=== PATIENT | female | born 1970 | race Caucasian/White ===

== ENCOUNTER → 2019-04-06 | Outpatient (CLI) | payer OTHER ==
[~2019-04-06] MED LIST: ACET500ER PO; ADIPEX; ALBU90I INH; ALBUIS INH; ASCO500 PO; ASPI81EC PO; Bactrim Ds Tab1 EACH PO; CARB200ER PO; CEPH500 PO; CODBUTACEC PO; CODGUAEL PO; Cipro250 MG PO; FOLGARD TABLET1 EACH PO; FOLI1 PO; HYDMOR2 PO; IBUP800 PO; LEVE500 PO; METO10 PO; MULVITMIND PO; OLME20 PO; OMEG1CAP30 PO; OXYACE5T PO; PRED20 PO; PROM25 PO; Pyridium200 MG PO; TIROSINT25 MCG PO; TOPI50 PO; VENL150ER PO
== END | disposition home or self-care (01) ==
LOC: LAB SHORT 19:18 → LAB EV 19:18
DX: N39.0 Urinary tract infection, site not specified (principal)
CPT/HCPCS: 87077; 87086; 87186

== ENCOUNTER → 2019-08-24 | Outpatient (CLI) | payer OTHER | END | disposition home or self-care (01) | LOC: LAB SHORT 12:57 → LAB EV 12:57 | DX: N39.0 Urinary tract infection, site not specified (principal) | CPT/HCPCS: 87077; 87086; 87186 ==

== ENCOUNTER → 2019-09-21 | Outpatient (CLI) | payer OTHER | END | disposition home or self-care (01) | LOC: LAB SHORT 15:47 → LAB EV 15:47 | DX: N39.0 Urinary tract infection, site not specified (principal) | CPT/HCPCS: 87077; 87086; 87186 ==

== ENCOUNTER → 2019-10-30 | Outpatient (CLI) | payer OTHER | END | disposition home or self-care (01) | LOC: LAB EV 12:53 → LAB SHORT 12:53 | DX: N39.0 Urinary tract infection, site not specified (principal) | CPT/HCPCS: 87086 ==

== ENCOUNTER → 2019-12-04 | Outpatient (CLI) | payer OTHER | LOC: LAB SHORT 10:46 → LAB EV 10:46 | DX: N39.0 Urinary tract infection, site not specified (principal) | CPT/HCPCS: 87077; 87086; 87186 ==

== ENCOUNTER → 2020-07-31 | Outpatient (CLI) | payer OTHER | END | disposition home or self-care (01) | LOC: LAB SHORT 09:45 → LAB EV 09:45 | DX: N39.0 Urinary tract infection, site not specified (principal) | CPT/HCPCS: 87077; 87086; 87186 ==

== ENCOUNTER → 2020-10-30 | Outpatient (CLI) | payer OTHER | END | disposition home or self-care (01) | LOC: LAB SHORT 10:34 → LAB EV 10:34 | DX: N39.0 Urinary tract infection, site not specified (principal) | CPT/HCPCS: 87077; 87086; 87186 ==

== ENCOUNTER → 2021-07-13 | Outpatient (CLI) | payer OTHER | END | disposition home or self-care (01) | LOC: LAB SHORT 16:19 → LAB 16:19 | DX: N39.0 Urinary tract infection, site not specified (principal) | CPT/HCPCS: 87077; 87086; 87186 ==

== ENCOUNTER → 2021-10-24 | Outpatient (CLI) | payer OTHER | END | disposition home or self-care (01) | LOC: LAB SHORT 14:43 | DX: N39.0 Urinary tract infection, site not specified (principal) | CPT/HCPCS: 87077; 87086; 87186 ==

== ENCOUNTER → 2022-03-12 | Outpatient (CLI) | payer OTHER | END | disposition home or self-care (01) | LOC: LAB SHORT 09:41 | DX: N39.0 Urinary tract infection, site not specified (principal) | CPT/HCPCS: 87086 ==

== ENCOUNTER → 2022-04-19 | Outpatient (CLI) | payer OTHER | END | disposition home or self-care (01) | LOC: LAB 10:53 → LAB SHORT 10:53 | DX: N39.0 Urinary tract infection, site not specified (principal) | CPT/HCPCS: 87077; 87086; 87186 ==

== ENCOUNTER → 2022-09-06 | Outpatient (CLI) | payer OTHER | END | disposition home or self-care (01) | LOC: LAB 09:43 → LAB SHORT 09:43 | DX: N39.0 Urinary tract infection, site not specified (principal) | CPT/HCPCS: 87086 ==

== ENCOUNTER → 2022-09-20 | Outpatient (CLI) | payer OTHER | END | disposition home or self-care (01) | LOC: LAB SHORT 10:42 → LAB 10:42 | DX: N39.0 Urinary tract infection, site not specified (principal) | CPT/HCPCS: 87086 ==

== ENCOUNTER → 2023-08-05 | Outpatient (CLI) | payer OTHER | END | disposition home or self-care (01) | LOC: LAB SHORT 11:47 → LAB 11:47 | DX: N39.0 Urinary tract infection, site not specified (principal) | CPT/HCPCS: 87077; 87086; 87186 ==

== ENCOUNTER → 2023-08-26 | Outpatient (CLI) | payer OTHER | LOC: LAB SHORT 11:00 → LAB 11:00 | DX: N39.0 Urinary tract infection, site not specified (principal) | CPT/HCPCS: 87077; 87086; 87186 ==

== ENCOUNTER 2024-07-15 16:44 | Inpatient (IN) | payer OTHER ==
[~2024-07-15] VITALS: Ht 175.3 cm; Wt 95.4 kg
[~2024-07-15 16:44] MED LIST changes: -LEVE500 PO; +ROWEEPRA XR500 MG PO; +TOPI100 PO; -TOPI50 PO
[2024-07-15] MEDS ORDERED: LORazepam 2 MG/ML 1ML Injection IV ONE (16:55)
[2024-07-15] MEDS ORDERED: Albuterol 2.5 MG/3 ML VIAL INH SCH (16:55)
[2024-07-15] MEDS ORDERED: Magnesium Sulf 2 GM/Water 50ML 50 ML IV ONE (16:55)
[2024-07-15 16:59] LABS: BASOPHILS ABSOLUTE AUTO 0.07 K/mm3 (0.00-0.23); BASOPHILS PERCENT AUTO 1 % (0-2); EOSINOPHILS ABSOLUTE AUTO 0.48 K/mm3 (0.00-0.68); EOSINOPHILS PERCENT AUTO 5 % (0-6); Hematocrit 45.1 % (33.0-51.0); Hemoglobin 16.3 g/dL (11.5-16.0); IMMATURE GRAN ABSOLUTE AUTO 0.02 K/mm3 (0.00-0.10); IMMATURE GRAN PERCENT AUTO 0 % (0-1); LYMPHOCYTES ABSOLUTE AUTO 2.57 K/mm3 (0.84-5.20); LYMPHOCYTES PERCENT AUTO 25 % (21-46); MONOCYTES ABSOLUTE AUTO 0.62 K/mm3 (0.16-1.47); MONOCYTES PERCENT AUTO 6 % (4-13); Mean Corpuscular HGB 32.5 pg (26.0-34.0); Mean Corpuscular HGB Conc 36.1 g/dL (31.5-36.5); Mean Corpuscular Volume 90 fL (80-100); Mean Platelet Volume 8.7 fL (9.1-12.4); NEUTROPHILS ABSOLUTE AUTO 6.43 K/mm3 (1.96-9.15); NEUTROPHILS PERCENT AUTO 63 % (41-73); Platelet Count 271 K/mm3 (150-400); RDW Standard Deviation 39.3 fL (35.1-46.3); Red Blood Cell Count 5.02 M/mm3 (3.80-5.20); White Blood Cell Count 10.19 K/mm3 (4.00-11.30)
[2024-07-15 17:01] LABS: Base Excess Venous -9.5 mmol/L; Bicarbonate Venous 18.6 mmol/L (24.0-30.0); pH Blood Venous 7.43 (7.34-7.37)
[2024-07-15] MEDS ORDERED: Amitriptyline H10 MG PO (17:01)
[2024-07-15] MEDS ORDERED: ALBU90OI INH (17:02)
[2024-07-15 17:19] LABS: Albumin, Blood 3.9 g/dL (3.4-5.0); Albumin/Globulin Ratio 1.1 (0.8-1.8); Bilirubin, Total 0.6 mg/dL (0.1-1.0); Calcium, Blood 9.1 mg/dL (8.5-10.1); Creatinine, Blood 0.78 mg/dL (0.40-1.00); Globulin, Blood 3.6 g/dL (2.2-4.0); Potassium, Blood 4.3 mmol/L (3.5-5.5); Total Protein, Blood 7.5 g/dL (6.4-8.2)
[2024-07-15 18:33] LABS: Influenza A, PCR NEGATIVE (NEGATIVE); Influenza B, PCR NEGATIVE (NEGATIVE); Resp Syncytial Virus, PCR NEGATIVE (NEGATIVE); SARS-Cov-2 (COVID-19) PCR, MMC NEGATIVE (NEGATIVE)
[2024-07-15] MEDS ORDERED: Ipratropium/Albuterol SulF 2.5-0.5MG/3 ML Amp INH SCH (18:55)
[2024-07-15] MEDS ORDERED: Acetaminophen 325 MG TABLET PO PRN (19:00)
[2024-07-15] MEDS ORDERED: Magnesium Hydroxide Conc 10 ML UDC PO PRN (19:00)
[2024-07-15] MEDS ORDERED: FLU VACC TS2024-25(6MOS UP)/PF 45 MCG/0.5 ML SYRINGE IM ONE (19:00)
[2024-07-15] MEDS ORDERED: MethylPREDNISolone Sod Succ 125 MG Vial IV SCH (19:10)
[2024-07-15] MEDS ORDERED: Benzonatate 100 MG Cap PO PRN (20:15)
[2024-07-15] MEDS ORDERED: LevETIRAcetam 500 MG Tab PO SCH (21:00)
[2024-07-15] MEDS ORDERED: Topiramate 100 MG Tab PO SCH (21:00)
[2024-07-15] MEDS ORDERED: Amitriptyline HCl 10 MG Tab PO SCH (21:00)
[2024-07-15] MEDS ORDERED: Albuterol 2.5 MG/3 ML VIAL INH PRN (21:20)
[2024-07-15 21:25] VITALS: BP 116/70
[2024-07-15] MEDS ORDERED: Ibuprofen 400 MG Tab PO PRN (21:40)
[2024-07-15] MEDS ORDERED: Misc. Tablet PO SCH (22:37)
[2024-07-15] MEDS ORDERED: Vancomycin HCL 1,500 MG in NS 250 ML IV SCH (23:00)
[2024-07-16] VITALS (7 sets, daily range): BP systolic 16–131; BP diastolic 65–88
[2024-07-16 00:13] LABS: Adenovirus Not Detected (NOT DETECT); Bordetella pertussis Not Detected (NOT DETECT); Chlamydophila pneumoniae Not Detected (NOT DETECT); Coronavirus 229E Not Detected (NOT DETECT); Coronavirus HKU1 Not Detected (NOT DETECT); Coronavirus NL63 Not Detected (NOT DETECT); Coronavirus OC43 Not Detected (NOT DETECT); Human Metapneumovirus Not Detected (NOT DETECT); Human Rhinovirus/Enterovirus Detected (NOT DETECT); Influenza A/2009-H1 Not Detected (NOT DETECT); Influenza A/H1 Not Detected (NOT DETECT); Influenza A/H3 Not Detected (NOT DETECT); Influenza B Not Detected (NOT DETECT); Mycoplasma pneumoniae Not Detected (NOT DETECT); Parainfluenza Virus 1 Not Detected (NOT DETECT); Parainfluenza Virus 2 Not Detected (NOT DETECT); Parainfluenza Virus 3 Not Detected (NOT DETECT); Parainfluenza Virus 4 Not Detected (NOT DETECT); Respiratory Syncytial Virus Not Detected (NOT DETECT); SARS-Cov-2 (COVID-19), BioFire Not Detected (NOT DETECT)
[2024-07-16 05:39] LABS: Albumin, Blood 3.5 g/dL (3.4-5.0); Bilirubin, Total 0.5 mg/dL (0.1-1.0); Bun/Creatinine Ratio 12.9 (12.0-20.0); Calcium, Blood 9.2 mg/dL (8.5-10.1); Creatinine, Blood 0.78 mg/dL (0.40-1.00); Globulin, Blood 3.4 g/dL (2.2-4.0); Potassium, Blood 3.9 mmol/L (3.5-5.5); Total Protein, Blood 6.9 g/dL (6.4-8.2)
--- NOTE | 2024-07-16 06:43 | NUR ---
SHIFT SUMMARY PT ARRIVED TO ROOM PCU 15 FROM THE ER AROUND 2104 VIA GURNEY. PT TRANSFERED HERSELF TO THE HOSPITAL BED. PT ORIENTED TO ROOM AND CALL LIGHT. PT IS A&OX4. VSS ON RA. PT HAS A HORRIBLE BARKY, DRY NONPRODUCTIVE COUGH. THIS IS VERY PAINFUL TO HER RIBS R/T COUGHING SO FREQUENTLY. MEDICATED PER EMAR FOR RIB PAIN 04/11 WITH 800MG IBUPROFEN, AND 10ML GUAIFENESIN/CODEINE SYRUP FOR HER COUGH. PT USING A PILLOW TO APPLY PRESSURE TO RIGHT SIDE OF RIBS WHEN COUGHING TO HELP WITH PAIN. PT IS ADAMANT ABOUT GOING HOME TODAY. TOLERATING A REGULAR DIET, DECREASED PO INTAKE R/T NOT FEELING WELL AND INCREASE SOB. SBA/INDEP. TO BR. VOIDING LARGE AMOUNTS OF CLEAR, BRIGHT YELLOW URINE. NO BM THIS SHIFT. DROPLET PRECAUTIONS INITIATED FOR ENTERO/RHINO VIRUS. BED IN LOWEST POSITION, CALL LIGHT WITHIN REACH.
[2024-07-16] MEDS ORDERED: Enoxaparin 40 MG/0.4 ML SYR SC SCH (09:00)
[2024-07-16] MEDS ORDERED: ALPRAZolam 0.5 MG Tab PO PRN (09:15)
[2024-07-16] MEDS ORDERED: Budesonide 0.5 MG/2 ML RESP INH SCH (14:30)
--- NOTE | 2024-07-16 18:26 | NUR ---
SHIFT SUMMARY ASSUMED CARE AT 0700 AND RECEIVED REPORT FROM PEST CONTROL SPECIALIST NURSE. PT REMAINED ALERT AND ORIENTED THROUGHOUT SHIFT AND MADE NEEDS KNOWN. VITALS STABLE. LUNG SOUNDS WHEEZY AND COARSE IN ALL [place]. PRODUCTIVE AND PERSISTENT COUGHT NOTED THROUGHOUT SHIFT. NO ACUTE EVENTS THIS SHIFT.
[2024-07-16] MEDS ORDERED: Ipratropium/Albuterol SulF 2.5-0.5MG/3 ML Amp INH SCH (18:55)
[2024-07-16] MEDS ORDERED: Montelukast Sodium 10 MG Tab PO SCH (21:00)
[2024-07-16] MEDS ORDERED: Ketorolac Tromethamine 15mg Vial IV ONE (22:40)
--- NOTE | 2024-07-16 22:40 | NUR ---
PHYSICIAN COMMUNICATION CONTACTED TERRITORY REPRESENTATIVE RESIDENT TO INFORM HER THAT THE PATIENT IS EXPERIENCING 8/10 RIB PAIN WHILE COUGHING AND PATIENT HAS RECEIVED IBUPROPHEN AND TYLENOL WITHOUT RELIEF AND WAS REQUESTING SOMETHING ELSE. THE RESIDENT ORDERED A ONE TIME DOSE OF 15 MG IV TORADOL.
[2024-07-17] MEDS ORDERED: FentaNYL Citrate 50 MCG/ML 2 ML Injection IV PRN (04:30)
[2024-07-17 04:32] LABS: BASOPHILS ABSOLUTE AUTO 0.02 K/mm3 (0.00-0.23); BASOPHILS PERCENT AUTO 0 % (0-2); EOSINOPHILS PERCENT AUTO 0 % (0-6); Hematocrit 42.3 % (33.0-51.0); Hemoglobin 14.5 g/dL (11.5-16.0); IMMATURE GRAN ABSOLUTE AUTO 0.13 K/mm3 (0.00-0.10); IMMATURE GRAN PERCENT AUTO 1 % (0-1); LYMPHOCYTES ABSOLUTE AUTO 1.44 K/mm3 (0.84-5.20); LYMPHOCYTES PERCENT AUTO 7 % (21-46); MONOCYTES PERCENT AUTO 3 % (4-13); Mean Corpuscular HGB 32.5 pg (26.0-34.0); Mean Corpuscular HGB Conc 34.3 g/dL (31.5-36.5); NEUTROPHILS PERCENT AUTO 89 % (41-73); Platelet Count 238 K/mm3 (150-400); RDW Coefficient Variation 12.2 % (11.7-14.2); RDW Standard Deviation 42.5 fL (35.1-46.3); Red Blood Cell Count 4.46 M/mm3 (3.80-5.20); White Blood Cell Count 20.99 K/mm3 (4.00-11.30)
[2024-07-17 04:34] LABS: Mean Corpuscular Volume 95 fL (80-100)
[2024-07-17 04:50] VITALS: BP 116/70
[2024-07-17 04:52] LABS: Bun/Creatinine Ratio 22.9 (12.0-20.0); Calcium, Blood 9.1 mg/dL (8.5-10.1); Creatinine, Blood 0.83 mg/dL (0.40-1.00)
--- NOTE | 2024-07-17 06:42 | NUR ---
SHIFT SUMMARY PATIETN ALERT AND ORIENTED X4. MEDICATED PER EMAR FOR PAIN WITH NO EFFECT UNTIL FENTANYL WAS ADMINISTERED, PATIENT REPORTED IT "TOOK THE EDGE OFF" HER RIB PAIN MAKING IT SO SHE COULD COUGH MORE COMFORTABLY. PATIENT ON ROOM AIR WITH SPO2 >90%. VITAL SIGNS STABLE, SINUS RYTHM ON TELE. WILL CONTINUE TO MONITOR. CALL LIGHT WITHIN REACH.
[2024-07-17 08:43] VITALS: BP 120/64
[2024-07-17 11:43] VITALS: BP 121/74
[2024-07-17 17:09] VITALS: BP 128/79
--- NOTE | 2024-07-17 18:51 | NUR ---
PT HAS BEEN BREATHING WELL TODAY WITH USE OF COUGH SUPPRESSANTS, BREATHING TREATMENTS, PAIN MEDS. SHE REPORTS THE SHE IS FEELING LESS ANXIOUS TODAY. SHE IS ABLE TO TALK IN FULL SENTENCES. REPORTS INTERMITTENT PLEURITIC CHEST PAIN PAIN. VSS. LOAIZA. SHE HAS BEEN UP TO SHOWER.
[2024-07-17 21:07] VITALS: BP 127/76
[2024-07-18 03:59] VITALS: BP 119/71
--- NOTE | 2024-07-18 06:38 | NUR ---
SHIFT SUMMARY PATIENT ALERT AND ORIENTED X4. INDEPENDENT WITH AMBULATING IN HER ROOM. SHE WAS MEDICATED PER EMAR FOR PAIN, COUGH, AND ANXIETY. SHE REPORTS HAVING ANXIETY ON HER SLOW PROGRESSION TOWARDS GETTING BETTER. SHE REMAINS ON ROOM AIR WITH SPO2 >90%. VITAL SIGNS STABLE. NO ACUTE ISSUES NOTED OVERNIGHT. WILL CONTINUE TO MONITOR. CALL LIGHT WITHIN REACH.
[2024-07-18 08:24] VITALS: BP 154/92
[2024-07-18] MEDS ORDERED: Ketorolac Tromethamine 15mg Vial IV ONE (10:20)
[2024-07-18] MEDS ORDERED: Chlorphiramine/Hydrod Polistir 5 ML UDC PO SCH (10:20)
[2024-07-18] MEDS ORDERED: Sennosides 8.6 MG Tab PO SCH (10:20)
[2024-07-18] MEDS ORDERED: HYDROmorphone HCl/Pf 1MG SYR IV PRN (14:05)
[2024-07-18 15:27] VITALS: BP 125/87
--- NOTE | 2024-07-18 17:32 | NUR ---
END OF SHIFT NOTE: PT A/OX4, ABLE TO CALL APPROPRIATELY & COMMUNICATE NEEDS W/ STAFF. ANXIOUS AT TIMES, PARTICULARLY DURING EPISODES OF COUGHING. SPO2 >90% ON ROOM AIR, COUGH REMAINS HARSH/BARKING. HR 80-90'S, NO TELE PER ORDERS. SBP 120-150'S, DENIES CHEST PAIN. C/O SEVERE PAIN & SPASMING TO RIGHT SIDE/RIBS; IMPROVEMENT W/ PAIN MEDICATION & COUGH SUPPRESSANT PER EMAR. XANAX PER EMAR FOR ANXIETY NEEDED. UP TO BATHROOM TO VOID INDEPENDENTLY, ABLE TO REPOSITION SELF IN BED. TOLERATING PO INTAKE WELL. NO OTHER NEEDS AT THIS TIME. PT IS RESTING IN BED W/ AT BEDSIDE. CALL LIGHT IN REACH.
[2024-07-18 20:08] VITALS: BP 134/87
[2024-07-18] MEDS ORDERED: BusPIRone HCl 5 MG Tab PO SCH (21:00)
[2024-07-19 04:18] LABS: pH Blood Venous 7.34 (7.34-7.37)
[2024-07-19 04:19] LABS: Base Excess Venous -5.5 mmol/L; Bicarbonate Venous 20.2 mmol/L (24.0-30.0); PCO2 Venous 37.8 mmHg (38-42)
[2024-07-19 04:21] LABS: BASOPHILS ABSOLUTE AUTO 0.04 K/mm3 (0.00-0.23); BASOPHILS PERCENT AUTO 0 % (0-2); EOSINOPHILS PERCENT AUTO 0 % (0-6); Hematocrit 41.7 % (33.0-51.0); Hemoglobin 14.4 g/dL (11.5-16.0); IMMATURE GRAN ABSOLUTE AUTO 0.27 K/mm3 (0.00-0.10); IMMATURE GRAN PERCENT AUTO 2 % (0-1); LYMPHOCYTES PERCENT AUTO 11 % (21-46); MONOCYTES ABSOLUTE AUTO 0.63 K/mm3 (0.16-1.47); MONOCYTES PERCENT AUTO 4 % (4-13); Mean Corpuscular HGB 32.7 pg (26.0-34.0); Mean Corpuscular HGB Conc 34.5 g/dL (31.5-36.5); Mean Corpuscular Volume 95 fL (80-100); Mean Platelet Volume 8.9 fL (9.1-12.4); NEUTROPHILS ABSOLUTE AUTO 12.56 K/mm3 (1.96-9.15); NEUTROPHILS PERCENT AUTO 83 % (41-73); Platelet Count 212 K/mm3 (150-400); RDW Coefficient Variation 11.9 % (11.7-14.2); RDW Standard Deviation 41.1 fL (35.1-46.3); Red Blood Cell Count 4.41 M/mm3 (3.80-5.20)
[2024-07-19 04:25] VITALS: BP 141/75
[2024-07-19 04:49] LABS: Bun/Creatinine Ratio 25.7 (12.0-20.0); Calcium, Blood 8.6 mg/dL (8.5-10.1); Creatinine, Blood 0.74 mg/dL (0.40-1.00); Potassium, Blood 3.8 mmol/L (3.5-5.5)
--- NOTE | 2024-07-19 06:35 | NUR ---
SHIFT SUMMARY PATIENT ALERT AND ORIENTED X4, IS INDEPENDENT IN HER ROOM. PATIENT CONTINUES TO HAVE RIGHT SIDED PAIN WHEN COUGHING, MEDICATED PER EMAR. COUGH SOUNDS CONGESTED WITH COARSE LUNG SOUNDS. PATIENT CONTINUES ON ROOM AIR WITH SPO2 >90%. VITAL SIGNS STABLE. WILL CONTINUE TO MONITOR. CALL LIGHT WITHIN REACH.
[2024-07-19 07:31] VITALS: BP 135/74
[2024-07-19] MEDS ORDERED: Acetylcysteine 200 MG/ML 4ML Vial INH SCH (12:05)
[2024-07-19 15:17] VITALS: BP 144/98
[2024-07-19] MEDS ORDERED: HYDROmorphone HCl/Pf 1MG SYR IV PRN (16:15)
--- NOTE | 2024-07-19 17:56 | NUR ---
END OF SHIFT NOTE: NO ACUTE EVENTS THIS SHIFT. PT A/OX4, ANXIOUS AT TIMES. ABLE TO CALL APPROPRIATELY & COMMUNICATE NEEDS W/ STAFF. HR 70-80'S, NO TELE PER ORDERS. SBP 130-140'S, MAP >65. SPO2 >90% ON RA. PT CONTINUES TO ENDORSE RIGHT "RIB PAIN" AND "SPASMS", MEDICATED PER EMAR W/ RELIEF. BREATHING TX PER RT. PT TOLERATING PO INTAKE WELL. ABLE TO AMBULATE INDEPENDENTLY TO RESTROOM & REPOSITION INDEPENDENTLY. NO OTHER NEEDS AT THIS TIME. PT SITTING UP IN BED W/ DAUGHTER AT BEDSIDE. CALL LIGHT IN REACH.
[2024-07-19 19:55] VITALS: BP 143/69
[2024-07-19] MEDS ORDERED: PredniSONE 20 MG Tab PO SCH (21:00)
[2024-07-19] MEDS ORDERED: BusPIRone HCl 5 MG Tab PO SCH (21:00)
[2024-07-20 04:39] VITALS: BP 116/94
[2024-07-20 04:48] LABS: BASOPHILS ABSOLUTE AUTO 0.07 K/mm3 (0.00-0.23); BASOPHILS PERCENT AUTO 1 % (0-2); EOSINOPHILS PERCENT AUTO 0 % (0-6); Hematocrit 40.5 % (33.0-51.0); Hemoglobin 13.8 g/dL (11.5-16.0); IMMATURE GRAN PERCENT AUTO 4 % (0-1); LYMPHOCYTES ABSOLUTE AUTO 1.74 K/mm3 (0.84-5.20); LYMPHOCYTES PERCENT AUTO 15 % (21-46); MONOCYTES ABSOLUTE AUTO 0.62 K/mm3 (0.16-1.47); MONOCYTES PERCENT AUTO 5 % (4-13); Mean Corpuscular HGB 32.5 pg (26.0-34.0); Mean Corpuscular HGB Conc 34.1 g/dL (31.5-36.5); Mean Corpuscular Volume 95 fL (80-100); Mean Platelet Volume 8.9 fL (9.1-12.4); NEUTROPHILS ABSOLUTE AUTO 8.83 K/mm3 (1.96-9.15); NEUTROPHILS PERCENT AUTO 75 % (41-73); Platelet Count 215 K/mm3 (150-400); RDW Coefficient Variation 12.1 % (11.7-14.2); RDW Standard Deviation 41.9 fL (35.1-46.3); Red Blood Cell Count 4.25 M/mm3 (3.80-5.20); White Blood Cell Count 11.76 K/mm3 (4.00-11.30)
--- NOTE | 2024-07-20 05:02 | NUR ---
SHIFT SUMMARY. SHIFT HAS BEEN UNREMARKABLE. PT AOX4, PLEASANT, COOPERATIVE WITH CARE, CALLS APPROPRIATELY, ABLE TO MAKE NEEDS KNOWN. PAIN HAS BEEN MOSTLY ADEQUATELY MANAGED VIA EMAR THROUGHOUT SHIFT. PT REPORTS AT REST PAIN IS VERY TOLERABLE, SPIKES WITH COUGHING. PT REPORTS THAT MEDICATION DOES HELP TO ALLEVIATE THE PAIN ASSOCIATED WITH COUGHING BUT EVEN WITH PRN PAIN MEDICATIONS GIVEN ON CYCLE PAIN PERSISTS. LUNG SOUNDS REMAIN VERY COARSE AND WHEEZY. DESPITE THIS, ABLE TO MAINTAIN ADEQUATE SATURATION ON ROOM AIR. INDEPENDENT IN ROOM. REPORTS HAS BEEN ABLE TO VOID WITHOUT DIFFICULTY BUT HAS NOT HAD BM SINCE ADMITTANCE. PT MED STATUS NO TELE, VITALS HAVE REMAINED STABLE. SHIFT HAS OTHERWISE BEEN UNREMARKABLE. BED LOCKED IN LOWEST POSITION. CALL LIGHT LEFT WITHIN REACH. CONTINUING TO MONITOR.
[2024-07-20 05:20] LABS: Bun/Creatinine Ratio 22.9 (12.0-20.0); Calcium, Blood 8.9 mg/dL (8.5-10.1); Creatinine, Blood 0.79 mg/dL (0.40-1.00); Potassium, Blood 3.9 mmol/L (3.5-5.5)
[2024-07-20] MEDS ORDERED: HYDROmorphone HCl 2 MG Tab PO PRN (09:05)
[2024-07-20 09:13] VITALS: BP 141/76
--- NOTE | 2024-07-20 15:16 | NUR ---
TRANSFER UPDATE REPORT GIVEN TO [facility] FLOOR RN AT 1456. PT TRNAFERED TO [facility] AT 1517 VIA WHEELCHAIR AND ON RA. PT ABLE TO TRANSFER TO AND FROM WHEELCHAIR ON HER OWN, TOLRETED WELL. PT PERSONAL BELONGINGS WITH PT AND PT'S FAMILY MAMEBER DURING TRANSFER. CHART WITH STAFF MEMBER ALONG WITH MEDICATIONS IN GREEN MED TRANFER BAG.
--- NOTE | 2024-07-20 17:08 | NUR ---
SHIFT SUMMARY PT TRANSFERED FROM PCU 15 TO ROOM 326 THIS SHIFT. PT IS A&O X4 AND INDEPENDENT IN ROOM. PT NOTED TO HAVE PAIN TO CHEST AND RIBS STATED IT WAS FROM COUGHING ALL THE TIME, MEDICATED PER EMAR. PT DAUGHTER IS AT BEDSIDE. PT IS ORINTATED TO ROOM WITH NO CONCERNS AT THIS TIME. PT IS IN ISOLATION D/T TESTING POSITIVE FOR THE RINOVIRUS.
[2024-07-20 20:28] VITALS: BP 119/73
[2024-07-20] MEDS ORDERED: BusPIRone HCl 10 MG Tab PO SCH (21:00)
[2024-07-20] MEDS ORDERED: GuaiFENesin 600 MG TabCR PO SCH (21:00)
--- NOTE | 2024-07-21 03:05 | NUR ---
SHIFT SUMMARY: PT ALERT ORIENTED X 4. GETS UP IN HER ROOM AD RACIEL. AMBULATES AD RACIEL. REMAINS WITH A HACKING NONPRODUCTIVE COUGH. C/O RIB PAIN FROM COUGHING MEDICATED WITH DILAUDID WITH GOOD PAIN RELIEF. VSS ON RA SATTING AT 99%. C/O SOB ON EXERTION. REMAINS WITH HHN TXS. REMAINS WITH ANXIETY BUT STATED SHE DIDNT NEED ANY XANAX. REMAINS ON DROPLET PRECAUTIONS R/T RHINOVIRUS. CONTINUES ON CONTINUOUS PULSE OX. RESTING IN BED AT THIS TIME.
[2024-07-21 04:44] VITALS: BP 141/86
[2024-07-21 06:13] LABS: Free Thyroxine 0.62 ng/dL (0.70-1.60); Thyroid Stimulating Hormone 0.237 uIU/mL (0.360-4.800)
[2024-07-21 08:18] VITALS: BP 124/91
[2024-07-21] MEDS ORDERED: BUSP10 PO (13:15)
[2024-07-21] MEDS ORDERED: GUAI600T33 PO (13:16)
[2024-07-21] MEDS ORDERED: [UNRECOGNIZED DRUG - OTHER] PO (13:17)
[2024-07-21] MEDS ORDERED: HYDMOR2 PO (13:18)
[2024-07-21] MEDS ORDERED: IPRAT-ALBUT 0.5-3 ML INH (13:18)
[2024-07-21] MEDS ORDERED: MONT10T PO (13:20)
[2024-07-21] MEDS ORDERED: EUTHYROX125 MCG PO (13:20)
[2024-07-21] MEDS ORDERED: SENN187 PO (13:21)
[2024-07-21] MEDS ORDERED: PRED20 PO (13:21)
--- NOTE | 2024-07-21 13:42 | NUR ---
DISCHARGE SUMMARY PT DC THIS SHIFT. DC INSTRUCTION GONE OVER WITH PT WHOM STATED UNDERSTANDING. PT WAS GIVEN 3 HARD COPIES OF SCRIPTS WHICH WAS PLACED IN YELLOW FOLDER. HOME MEDICATION WAS ALSO GIVEN BACK TO PT. PT WAS ESCORTED TO PRIVATE VEHICLE VIA WHEELCHAIR ACCOMPANIED BY [employer]S MATE AND FAMILY.
== END 2024-07-21 14:09 | disposition home or self-care (01) | DRG 189 ==
LOC: ER 16:44 → PCU 18:57 → MEDS 07-20 15:20
PROVIDERS: Emergency Medicine; Internal Medicine; ADMIT Internal Medicine
DX: J96.01 Acute respiratory failure with hypoxia (principal); J45.41 Moderate persistent asthma with (acute) exacerbation; J20.5 Acute bronchitis due to respiratory syncytial virus; G43.909 Migraine, unspecified, not intractable, without status migrainosus; G40.909 Epilepsy, unspecified, not intractable, without status epilepticus; F41.9 Anxiety disorder, unspecified; F32.A Depression, unspecified; Z28.21 Immunization not carried out because of patient refusal; Z88.2 Allergy status to sulfonamides; Z79.899 Other long term (current) drug therapy; Z85.43 Personal history of malignant neoplasm of ovary; Z90.710 Acquired absence of both cervix and uterus; Z87.891 Personal history of nicotine dependence
CPT/HCPCS: 0202U; 0241U; 36415; 71045; 71046; 80048; 80053; 82803; 83036; 84145; 84439; 84443; 85025; 93005; 93010; 94640; 94644; 94645; 94664; 94762; 96365; 96375; 99285-25; A9270; J1170; J1650; J1885; J2060; J2919; J3010; J3475; J7512

== ENCOUNTER 2024-09-30 13:55 | Inpatient (IN) | payer OTHER ==
[~2024-09-30] VITALS: Ht 172.7 cm; Wt 93.9 kg
[~2024-09-30 13:55] MED LIST changes: +ALBU90OI INH; +Amitriptyline H10 MG PO; +BUSP10 PO; +GUAI600T33 PO; +IPRAT-ALBUT 0.5-3 ML INH; +LEVSOD75 PO; +MONT10T PO; +SENN187 PO; +[UNRECOGNIZED DRUG - OTHER] PO
[2024-09-30 14:43] LABS: BASOPHILS ABSOLUTE AUTO 0.04 K/mm3 (0.00-0.23); BASOPHILS PERCENT AUTO 0 % (0-2); EOSINOPHILS PERCENT AUTO 0 % (0-6); Hematocrit 42.5 % (33.0-51.0); Hemoglobin 14.9 g/dL (11.5-16.0); IMMATURE GRAN PERCENT AUTO 1 % (0-1); LYMPHOCYTES ABSOLUTE AUTO 1.53 K/mm3 (0.84-5.20); LYMPHOCYTES PERCENT AUTO 12 % (21-46); MONOCYTES ABSOLUTE AUTO 0.25 K/mm3 (0.16-1.47); MONOCYTES PERCENT AUTO 2 % (4-13); Mean Corpuscular HGB 32.2 pg (26.0-34.0); Mean Corpuscular HGB Conc 35.1 g/dL (31.5-36.5); Mean Corpuscular Volume 92 fL (80-100); Mean Platelet Volume 8.2 fL (9.1-12.4); NEUTROPHILS ABSOLUTE AUTO 10.66 K/mm3 (1.96-9.15); NEUTROPHILS PERCENT AUTO 85 % (41-73); Platelet Count 284 K/mm3 (150-400); RDW Coefficient Variation 12.4 % (11.7-14.2); RDW Standard Deviation 41.2 fL (35.1-46.3); Red Blood Cell Count 4.63 M/mm3 (3.80-5.20); White Blood Cell Count 12.58 K/mm3 (4.00-11.30)
[2024-09-30] MEDS ORDERED: Magnesium Sulf 2 GM/Water 50ML 50 ML IV ONE (14:55)
[2024-09-30] MEDS ORDERED: MethylPREDNISolone Sod Succ 125 MG Vial IV ONE (14:55)
[2024-09-30] MEDS ORDERED: Albuterol 2.5 MG/3 ML VIAL INH SCH ×2 (14:55→18:10)
[2024-09-30] MEDS ORDERED: Ipratropium Bromide INH 0.02% 0.5 mg/2.5ML Vial INH SCH (14:55)
[2024-09-30] MEDS ORDERED: Ketamine HCl 100 MG / ML 5ML Vial IV ONE (15:00)
[2024-09-30 15:05] LABS: Albumin, Blood 3.7 g/dL (3.4-5.0); Bilirubin, Total 0.4 mg/dL (0.1-1.0); Bun/Creatinine Ratio 19.4 (12.0-20.0); Calcium, Blood 9.4 mg/dL (8.5-10.1); Creatinine, Blood 0.67 mg/dL (0.40-1.00); Globulin, Blood 3.7 g/dL (2.2-4.0); Potassium, Blood 3.8 mmol/L (3.5-5.5); Total Protein, Blood 7.4 g/dL (6.4-8.2)
[2024-09-30] MEDS ORDERED: NS 1,000 ML IV SCH ×2 (16:20→18:10)
[2024-09-30] MEDS ORDERED: Guaifenesin/Dextromethorphan Syrup 5 ML UDC PO PRN (18:05)
[2024-09-30] MEDS ORDERED: Albuterol 2.5 MG/3 ML VIAL INH PRN (18:05)
[2024-09-30] MEDS ORDERED: Acetaminophen 500 MG Tab PO PRN (18:05)
[2024-09-30] MEDS ORDERED: LORazepam 1 MG Tab PO PRN (18:10)
[2024-09-30] MEDS ORDERED: Ondansetron HCl 2 MG / ML 2ML Vial IV PRN (18:10)
[2024-09-30 19:11] LABS: Bicarbonate Venous 19.8 mmol/L (24.0-30.0); PCO2 Venous 31.5 mmHg (38-42); pH Blood Venous 7.37 (7.34-7.37)
[2024-09-30] MEDS ORDERED: FLU VACC TS2024-25(6MOS UP)/PF 45 MCG/0.5 ML SYRINGE IM ONE (20:00)
[2024-09-30 20:29] LABS: Adenovirus Not Detected (NOT DETECT); Bordetella pertussis Not Detected (NOT DETECT); Chlamydophila pneumoniae Not Detected (NOT DETECT); Coronavirus 229E Not Detected (NOT DETECT); Coronavirus HKU1 Not Detected (NOT DETECT); Coronavirus NL63 Not Detected (NOT DETECT); Coronavirus OC43 Not Detected (NOT DETECT); Human Metapneumovirus Not Detected (NOT DETECT); Human Rhinovirus/Enterovirus Not Detected (NOT DETECT); Influenza A/2009-H1 Not Detected (NOT DETECT); Influenza A/H1 Not Detected (NOT DETECT); Influenza A/H3 Not Detected (NOT DETECT); Influenza B Not Detected (NOT DETECT); Mycoplasma pneumoniae Not Detected (NOT DETECT); Parainfluenza Virus 1 Not Detected (NOT DETECT); Parainfluenza Virus 2 Not Detected (NOT DETECT); Parainfluenza Virus 3 Detected (NOT DETECT); Parainfluenza Virus 4 Not Detected (NOT DETECT); Respiratory Syncytial Virus Not Detected (NOT DETECT); SARS-Cov-2 (COVID-19), BioFire Not Detected (NOT DETECT)
[2024-09-30] MEDS ORDERED: Topiramate 100 MG Tab PO SCH (21:00)
[2024-09-30] MEDS ORDERED: Amitriptyline HCl 10 MG Tab PO SCH (21:00)
[2024-09-30] MEDS ORDERED: BusPIRone HCl 10 MG Tab PO SCH (21:00)
[2024-09-30] MEDS ORDERED: GuaiFENesin 600 MG TabCR PO SCH (21:00)
[2024-09-30] MEDS ORDERED: LEVETIRACETAM 500 MG PO SCH (21:00)
[2024-09-30] MEDS ORDERED: Ventolin5 MG/1 ML INH (23:00)
[2024-09-30] MEDS ORDERED: IBU800 M1 PO (23:01)
[2024-09-30] MEDS ORDERED: ACETAMINOPHEN500 M2 PO (23:02)
--- NOTE | 2024-09-30 23:12 | NUR ---
ADMIT NOTE 54 YR OLD FEMALE ADMITED TO FLOOR FROM THE ED WITH DX OF ASTHMA EXACERBATION. LUNG SONDS COARSE IN ALL LOBES PER AUSCULTATION. ALERT AND ORIENTED. UP AD RACIEL. VSS. COOPERATIVE AND PLEASANT AFFECT. ORIENTED TO USE OF CALL LIGHT AND BED CONTROL. RECEIVED RT TREATMENT, TOLERATED MEDS WELL WITH WATER. HOB ELEVATED FOR REP COMFORT. CALL LIGHT IN REACH. WILL CONT TO MONITOR
[2024-10-01] MEDS ORDERED: MethylPREDNISolone Sod Succ 125 MG Vial IV SCH
--- NOTE | 2024-10-01 03:04 | NUR ---
ELECTION WATCHER SUMMARY VSS. ADMITTED TO FLOOR EARLIER WITH DX OF ASTHMA EXACERBATION. ALERT AND ORIENTED. UP AD RACIEL. LUNG SOUNDS CONGESTED. RECEIVED RESP TREATMENT PER RT AND HAS BEEN RESTING WITH FEW INTERRUTIONS SINCE. ABLE TO REPOSITION SELF IN BED WITHOUT ASSISANCE. CALL LIGHT IN REACH, RAILS UP X 2 AND BED IN LOW POSITION FOR SAFETY. WILL CONT TO MONITOR
[2024-10-01 03:33] VITALS: BP 120/84
--- NOTE | 2024-10-01 05:17 | NUR ---
HAS BEEN RESTING QUIETL WITH FEW INTERRUPTIONS. RECEIVING RESPIRATORY MEDS AND TREATMENTS. LUNG SOUNDS MORE CLEAR TO AUSCULATION. DRY COUGH NOTED. CALL LIGHT IN REACH
[2024-10-01 05:35] LABS: Hematocrit 41.4 % (33.0-51.0); Hemoglobin 14.2 g/dL (11.5-16.0); Mean Corpuscular HGB 32.5 pg (26.0-34.0); Mean Corpuscular HGB Conc 34.3 g/dL (31.5-36.5); Mean Corpuscular Volume 95 fL (80-100); Mean Platelet Volume 8.6 fL (9.1-12.4); Platelet Count 281 K/mm3 (150-400); RDW Coefficient Variation 12.3 % (11.7-14.2); RDW Standard Deviation 42.9 fL (35.1-46.3); Red Blood Cell Count 4.37 M/mm3 (3.80-5.20); White Blood Cell Count 12.77 K/mm3 (4.00-11.30)
[2024-10-01 06:12] LABS: Bun/Creatinine Ratio 19.4 (12.0-20.0); Creatinine, Blood 0.67 mg/dL (0.40-1.00); Potassium, Blood 3.6 mmol/L (3.5-5.5)
[2024-10-01 07:34] VITALS: BP 118/79
[2024-10-01] MEDS ORDERED: Enoxaparin 40 MG/0.4 ML SYR SC SCH (09:00)
[2024-10-01] MEDS ORDERED: Ketorolac Tromethamine 30mg Vial IV PRN (14:45)
--- NOTE | 2024-10-01 16:26 | NUR ---
SHIFT SUMMARY PT AWAKE AT START OF SHIFT, AT BS. PT ADMITTED FOR ASTHMA EXAC; LUNG'S ARE COARSE WITH INSP/EXP WHEEZES THRU OUT. PT REQUESTED PAIN AND COUGH MED THUR OUT SHIFT. PT REPORTED SEVERE RIB PAIN FROM COUGHING. DR RICHTER IN TO SEE PT AND DISCUSS PLAN OF CARE. PT TO STAY ONE MORE NIGHT TO IMPROVE COUGH AND BREATHING. PT IS UP INDEPENDENTLY IN RM TO BTHRM. EATING AND DRINKING WELL. DENIES FURTHER NEEDS AT THIS TIME.
[2024-10-01 17:01] VITALS: BP 123/75
[2024-10-01 19:22] VITALS: BP 117/81
[2024-10-02 03:07] VITALS: BP 109/57
--- NOTE | 2024-10-02 03:33 | NUR ---
BASKET BOTTOM MACHINE OPERATOR SUMMARY VSS. LUNG SOUNDS WERE CONGESTED WITH INSPIRATORY WHEEZES WELL WITH AUSCULTATION ATT HS. IV MEDS AND RESP TREATMENTS GIVEN, COUGHING DECREASED AND LESS CONGESTION NOTED. ALERT AND ORIENTED.UP AD RACIEL. ABLE TO REPOSITION SELF IN BED WITHOUT ASSIST. HAS BEEN RESTING QUIETLY WITH FEW INTERRUPTIOMS. CALL LIGHT IN REACH, RAILS UP X 2 AND BED IN LOW POSITION FOR SAFETY. WILL CONT TO [facility]
[2024-10-02 05:41] LABS: BASOPHILS ABSOLUTE AUTO 0.03 K/mm3 (0.00-0.23); BASOPHILS PERCENT AUTO 0 % (0-2); EOSINOPHILS ABSOLUTE AUTO 0.01 K/mm3 (0.00-0.68); EOSINOPHILS PERCENT AUTO 0 % (0-6); Hematocrit 41.9 % (33.0-51.0); Hemoglobin 14.3 g/dL (11.5-16.0); IMMATURE GRAN PERCENT AUTO 1 % (0-1); LYMPHOCYTES ABSOLUTE AUTO 2.17 K/mm3 (0.84-5.20); LYMPHOCYTES PERCENT AUTO 12 % (21-46); MONOCYTES ABSOLUTE AUTO 0.55 K/mm3 (0.16-1.47); MONOCYTES PERCENT AUTO 3 % (4-13); Mean Corpuscular HGB 31.9 pg (26.0-34.0); Mean Corpuscular HGB Conc 34.1 g/dL (31.5-36.5); Mean Corpuscular Volume 94 fL (80-100); Mean Platelet Volume 8.7 fL (9.1-12.4); NEUTROPHILS ABSOLUTE AUTO 15.33 K/mm3 (1.96-9.15); NEUTROPHILS PERCENT AUTO 84 % (41-73); Platelet Count 261 K/mm3 (150-400); RDW Coefficient Variation 12.3 % (11.7-14.2); RDW Standard Deviation 42.3 fL (35.1-46.3); Red Blood Cell Count 4.48 M/mm3 (3.80-5.20); White Blood Cell Count 18.29 K/mm3 (4.00-11.30)
[2024-10-02 06:24] LABS: Albumin, Blood 3.4 g/dL (3.4-5.0); Bilirubin, Total 0.3 mg/dL (0.1-1.0); Bun/Creatinine Ratio 24.5 (12.0-20.0); Calcium, Blood 9.1 mg/dL (8.5-10.1); Creatinine, Blood 0.7 mg/dL (0.40-1.00); Globulin, Blood 3.3 g/dL (2.2-4.0); Thyroid Stimulating Hormone 0.228 uIU/mL (0.360-4.800); Total Protein, Blood 6.7 g/dL (6.4-8.2)
[2024-10-02 07:14] VITALS: BP 130/86
[2024-10-02] MEDS ORDERED: ROBITUSSIN DM PO (14:15)
[2024-10-02] MEDS ORDERED: GUAI600T33 PO (14:16)
--- NOTE | 2024-10-02 16:03 | NUR ---
PT AWAKE DURING SHIFT REPORT. PT FEELING A LITTLE BETTER. BREATHING IMPROVED AND COUGH DECREASED, THOUGH LUNGS STILL COARSE AND WHEEZY. PT WANTING TO GO HOME TODAY. DR RICHTER LATER IN TO SEE PT AND DISCUSS PLAN OF CARE. D/C ORDERS PLACED. MEDS FAXED TO [facility], PER PT REQUEST. D/C INSTRUCTIONS REVIEWED WITH PT AND ; VERBALIZED UNDERSTANDING. PT ASSISTED OUT VIA W/C WITH ALL BELONGINGS TO HUSBANDS CAR.
== END 2024-10-02 14:55 | disposition home or self-care (01) | DRG 189 ==
LOC: ER 13:55 → MEDS 17:30 → ERHOLD 17:30 → MEDS 21:31
PROVIDERS: Internal Medicine; Nurse Practitioner Acute Care; Student in an Organized Health Care Education/Training Program; ADMIT Student in an Organized Health Care Education/Training Program
DX: J96.01 Acute respiratory failure with hypoxia (principal); J45.901 Unspecified asthma with (acute) exacerbation; B97.89 Other viral agents as the cause of diseases classified elsewhere; G40.909 Epilepsy, unspecified, not intractable, without status epilepticus; G43.909 Migraine, unspecified, not intractable, without status migrainosus; F32.A Depression, unspecified; F41.9 Anxiety disorder, unspecified; E66.9 Obesity, unspecified; J44.9 Chronic obstructive pulmonary disease, unspecified; F17.200 Nicotine dependence, unspecified, uncomplicated; E03.9 Hypothyroidism, unspecified; Z88.1 Allergy status to other antibiotic agents; Z85.43 Personal history of malignant neoplasm of ovary; Z71.6 Tobacco abuse counseling; Z79.890 Hormone replacement therapy; Z68.31 Body mass index [BMI] 31.0-31.9, adult; Z28.21 Immunization not carried out because of patient refusal
CPT/HCPCS: 0202U; 36415; 71045; 80048; 80053; 82803; 83605; 84443; 84484; 85025; 85027; 93005; 93010; 94640; 94644; 94664; 94760; 94762; 96365; 96366; 96375; 99285-25; A9270; J1650; J1885; J2919; J3475; J7030

== ENCOUNTER 2024-10-28 08:29 | Inpatient (IN) | payer OTHER ==
[~2024-10-28] VITALS: Ht 175.3 cm; Wt 93.8 kg
[~2024-10-28 08:29] MED LIST changes: +ACETAMINOPHEN500 M2 PO; +IBU800 M1 PO; +ROBITUSSIN DM PO; +Ventolin5 MG/1 ML INH
[2024-10-28] MEDS ORDERED: Ondansetron HCl 2 MG / ML 2ML Vial IV ONE ×2 (09:10→10:00)
[2024-10-28 09:28] LABS: BASOPHILS ABSOLUTE AUTO 0.06 K/mm3 (0.00-0.23); BASOPHILS PERCENT AUTO 0 % (0-2); EOSINOPHILS ABSOLUTE AUTO 0.29 K/mm3 (0.00-0.68); EOSINOPHILS PERCENT AUTO 2 % (0-6); Hemoglobin 16.4 g/dL (11.5-16.0); IMMATURE GRAN ABSOLUTE AUTO 0.03 K/mm3 (0.00-0.10); IMMATURE GRAN PERCENT AUTO 0 % (0-1); LYMPHOCYTES ABSOLUTE AUTO 1.64 K/mm3 (0.84-5.20); LYMPHOCYTES PERCENT AUTO 12 % (21-46); MONOCYTES ABSOLUTE AUTO 0.83 K/mm3 (0.16-1.47); MONOCYTES PERCENT AUTO 6 % (4-13); Mean Corpuscular HGB 31.9 pg (26.0-34.0); Mean Corpuscular HGB Conc 34.9 g/dL (31.5-36.5); Mean Corpuscular Volume 91 fL (80-100); Mean Platelet Volume 8.5 fL (9.1-12.4); NEUTROPHILS PERCENT AUTO 80 % (41-73); Platelet Count 303 K/mm3 (150-400); RDW Coefficient Variation 12.1 % (11.7-14.2); Red Blood Cell Count 5.14 M/mm3 (3.80-5.20); White Blood Cell Count 13.95 K/mm3 (4.00-11.30)
[2024-10-28] MEDS ORDERED: NS 1,000 ML IV SCH (09:45)
[2024-10-28] MEDS ORDERED: Morphine Sulfate 4 MG/1 ML Injection IV ONE (09:45)
[2024-10-28 10:00] LABS: Albumin, Blood 3.7 g/dL (3.4-5.0); Bilirubin, Total 0.6 mg/dL (0.1-1.0); Bun/Creatinine Ratio 10.8 (12.0-20.0); Calcium, Blood 9.1 mg/dL (8.5-10.1); Creatinine, Blood 0.74 mg/dL (0.40-1.00); Globulin, Blood 3.8 g/dL (2.2-4.0); Total Protein, Blood 7.5 g/dL (6.4-8.2)
[2024-10-28 10:46] LABS: Source, Urine Clean Catch
[2024-10-28 10:57] LABS: Bilirubin, Urine Neg (Neg); Blood, Urine Neg (Neg); Glucose Qualitative, Urine Neg (Neg); Ketones, Urine Neg (Neg); Leukocyte Esterase, Urine Neg (Neg); Nitrite, Urine Neg (Neg); Protein, Urine Neg (Neg); Urobilinogen, Urine NORM (Normal)
[2024-10-28 10:58] LABS: Appearance, Urine Clear (Clear); Color, Urine Yellow (P-Yellow)
[2024-10-28] MEDS ORDERED: HYDROmorphone HCl/Pf 1MG SYR IV ONE (11:20)
[2024-10-28] MEDS ORDERED: FLU VACC TS2024-25(6MOS UP)/PF 45 MCG/0.5 ML SYRINGE IM ONE (12:25)
[2024-10-28] MEDS ORDERED: OxyCODONE HCL 5 MG TAB PO PRN (12:30)
[2024-10-28] MEDS ORDERED: Ondansetron HCl 2 MG / ML 2ML Vial IV PRN (12:30)
[2024-10-28] MEDS ORDERED: HYDROmorphone HCl/Pf 1MG SYR IV PRN (12:30)
[2024-10-28 13:23] VITALS: BP 142/77
[2024-10-28] MEDS ORDERED: FLUTICASONE-SA1 EAC1 INH (13:29)
[2024-10-28] MEDS ORDERED: Metoclopramide HCl 5MG / ML 2ML Vial IV PRN (13:45)
--- NOTE | 2024-10-28 14:19 | NUR ---
ARRIVAL TO UNIT AFTER RECEIVING REPORT FROM ED RN, PATIENT TRANSFERRED TO UNIT VIA [facility] AT APPROX 1315. PATIENT ALERT AND ORIENTED X4. COMMUNICATING NEEDS EFFECTIVELY. PATIENT INDEPENDENTLY TRANSFERRED FROM RPALMDALE TO BED. VSS. SBP 140s. MAP >65. DENIES CHEST PAIN, PRESSURE. ON ROOM AIR, SATs >90%. REPORTING 10/10 ABD PAIN AND NAUSEA, NO VOMITING. MD ROSENBERG CONTACTED UNABLE TO ADMINISTER ORDERED IV ZOFRAN - ORDER RECEIVED FOR IV REGLAN 5MG Q6H PRN. ADMINISTERED PER EMAR WITH REPORTED RELIEF. BOWEL TONES HYPOACTIVE, ABD TENDER. PER RADIOLOGY, UNABLE TO COMPLETE HIDA SCAN UNTIL TOMORROW AROUND 1200 - PATIENT TO BE NPO FOR APPROX 4 HOURS AND TO HAVE NOT RECEIVED NARCOTICS FOR 6 HOURS PRIOR TO SCAN. CALL LIGHT IN REACH.
[2024-10-28] MEDS ORDERED: Ipratropium/Albuterol SulF 2.5-0.5MG/3 ML Amp INH PRN (15:10)
[2024-10-28] MEDS ORDERED: Albuterol HFA200 ACT/6.7 GM INH INH PRN (15:20)
[2024-10-28] MEDS ORDERED: Mometasone/Formoterol MDI 100/5 mcg 13 GM INH SCH (15:20)
[2024-10-28 16:00] VITALS: BP 139/85
--- NOTE | 2024-10-28 16:24 | NUR ---
SHIFT SUMMARY NO ACUTE CHANGES SINCE ARRIVAL TO UNIT NOTE. REMAINS ALERT AND ORIENTED X4. VSS. SBP 130s-140s. MAP >65. REMAINS ON ROOM AIR, SATs >90%. MANAGING ABD PAIN PER EMAR. NO FURTHER EPISODES OF NAUSEA SINCE IV REGLAN ADMINISTRATION - TOLERATING SIPS OF WATER. HIDA SCAN TO BE COMPLETED TOMORROW AFTERNOON AROUND 1200 PER IMAGING. VOIDING. CALL LIGHT IN REACH.
--- NOTE | 2024-10-28 17:03 | NUR ---
ASSUMED CARE OF PATIENT AT 1700
[2024-10-28 18:23] VITALS: BP 134/73
--- NOTE | 2024-10-28 19:27 | NUR ---
PT MEDICATED FOR PAIN ONCE SINCE ASSUMPTION OF CARE, REPORTS PAIN LEVEL DECREASE TO 2/10 FOLLOWING 1MG DILAUDID AND NAUSEA IMPROVED WITH 4MG ZOFRAN. PT WITH QUESTIONS REGARDING HIDA SCAN TOMORROW. PT EDUCATED ON ORDERS FOR NPO AT MIDNIGHT AND NO PAIN MEDICATION AFTER 0600 FOR 1200 TEST, PT VERBALIZED UNDERSTANDING.
[2024-10-28] MEDS ORDERED: Amitriptyline HCl 10 MG Tab PO SCH (21:00)
[2024-10-28] MEDS ORDERED: Topiramate 100 MG Tab PO SCH (21:00)
[2024-10-28] MEDS ORDERED: Montelukast Sodium 10 MG Tab PO SCH (21:00)
[2024-10-28] MEDS ORDERED: BusPIRone HCl 10 MG Tab PO SCH (21:00)
[2024-10-28] MEDS ORDERED: LEVETIRACETAM 500 MG PO SCH (21:00)
[2024-10-28 21:19] VITALS: BP 133/99
[2024-10-29] VITALS (15 sets, daily range): BP systolic 92–120; BP diastolic 54–100
[2024-10-29 05:16] LABS: BASOPHILS ABSOLUTE AUTO 0.05 K/mm3 (0.00-0.23); BASOPHILS PERCENT AUTO 0 % (0-2); EOSINOPHILS ABSOLUTE AUTO 0.24 K/mm3 (0.00-0.68); EOSINOPHILS PERCENT AUTO 2 % (0-6); Hematocrit 43.2 % (33.0-51.0); Hemoglobin 14.8 g/dL (11.5-16.0); IMMATURE GRAN ABSOLUTE AUTO 0.06 K/mm3 (0.00-0.10); IMMATURE GRAN PERCENT AUTO 0 % (0-1); LYMPHOCYTES ABSOLUTE AUTO 1.89 K/mm3 (0.84-5.20); LYMPHOCYTES PERCENT AUTO 14 % (21-46); MONOCYTES PERCENT AUTO 12 % (4-13); Mean Corpuscular HGB 31.9 pg (26.0-34.0); Mean Corpuscular HGB Conc 34.3 g/dL (31.5-36.5); Mean Corpuscular Volume 93 fL (80-100); Mean Platelet Volume 8.6 fL (9.1-12.4); NEUTROPHILS ABSOLUTE AUTO 9.64 K/mm3 (1.96-9.15); NEUTROPHILS PERCENT AUTO 72 % (41-73); Platelet Count 254 K/mm3 (150-400); RDW Coefficient Variation 12.5 % (11.7-14.2); RDW Standard Deviation 42.7 fL (35.1-46.3); Red Blood Cell Count 4.64 M/mm3 (3.80-5.20); White Blood Cell Count 13.48 K/mm3 (4.00-11.30)
[2024-10-29 05:39] LABS: Albumin, Blood 3.2 g/dL (3.4-5.0); Bilirubin, Total 1.1 mg/dL (0.1-1.0); Bun/Creatinine Ratio 10.6 (12.0-20.0); Calcium, Blood 8.6 mg/dL (8.5-10.1); Creatinine, Blood 0.76 mg/dL (0.40-1.00); Globulin, Blood 3.2 g/dL (2.2-4.0); Magnesium, Blood 1.9 mg/dL (1.6-2.4); Phosphorus, Blood 2.6 mg/dL (2.5-4.9); Potassium, Blood 3.7 mmol/L (3.5-5.5); Total Protein, Blood 6.4 g/dL (6.4-8.2)
--- NOTE | 2024-10-29 07:43 | NUR ---
SHIFT SUMMARY NOC. PT ADMIT FOR ABDOMINAL PAIN. PT HAS BEEN NPO SINCE 0000, AND LAST NARCOTIC PAIN MEDICATION GIVEN AT 0602. PT MEDICATED FOR PAIN AND NAUSEA T/O THE SHIFT WITH REPORTED RELIEF OF SX. DENIES VOMITING. PT TOLERATING CLEAR LIQUIDS PRIOR TO NPO STATUS. PT S.O. AT BEDSIDE. PT A/OX4, AND VOIDING URINE. PT MAKES NEEDS KNOWN, CALLS APPROPRIATELY, CALL LIGHT IN REACH.
[2024-10-29] MEDS ORDERED: Enoxaparin 40 MG/0.4 ML SYR SC SCH (09:00)
[2024-10-29] MEDS ORDERED: CefTRIAXone Sodium 1,000 MG in NS 100 ML IV SCH (10:09)
[2024-10-29] MEDS ORDERED: Ketorolac Tromethamine 15mg Vial IV PRN (10:25)
--- NOTE | 2024-10-29 11:48 | NUR ---
TO IMAGING VIA WC
[2024-10-29] MEDS ORDERED: Indocyanine Green 25 MG Vial IV ONE (14:55)
[2024-10-29] MEDS ORDERED: Scopolamine Hydrobromide Patch TOP SCH (15:00)
[2024-10-29] MEDS ORDERED: Lactated Ringer's 1,000 ML IV SCH (15:05)
[2024-10-29] MEDS ORDERED: Lactated Ringer's 1,000 ML IV ONE (15:10)
[2024-10-29] MEDS ORDERED: Bupivacaine 0.5% HCl 5 MG/ML 30MLVIAL ONE (15:13)
[2024-10-29] MEDS ORDERED: Midazolam HCl 1MG / ML 2ML Vial ONE (15:36)
[2024-10-29] MEDS ORDERED: propofoL 20 ML IV ONE (15:36)
[2024-10-29] MEDS ORDERED: Rocuronium Bromide 10 MG/ML 5ML Injection IV ONE (15:36)
[2024-10-29] MEDS ORDERED: Phenylephrine HCl 100 MCG/ML-NS 10MLSYR (1MG/10ML) ONE (15:48)
[2024-10-29] MEDS ORDERED: Ondansetron HCl 2 MG / ML 2ML Vial ONE (15:50)
[2024-10-29] MEDS ORDERED: Dexamethasone Sod Phos 10 MG/ML 1ML VIAL ONE (15:50)
[2024-10-29] MEDS ORDERED: ePHEDrine Sulfate 50 MG/ML 1ML Injection ONE (15:52)
[2024-10-29] MEDS ORDERED: FentaNYL Citrate 50 MCG/ML 2 ML Injection ONE ×2 (16:48→18:20)
--- NOTE | 2024-10-29 17:00 | NUR ---
10/29/24 1700 ETHAN RIVAS Patient observed with generalized abrasions to all extremities and torso - patient states they're "from a new puppy"
[2024-10-29] MEDS ORDERED: Sugammadex Sodium 200 MG/2ML SDV (100 MG/ML) ONE (18:20)
--- NOTE | 2024-10-29 19:25 | NUR ---
ARRIVAL TO UNIT PT ARRIVED TO UNIT FROM PACU VIA GOURNEY. PT ABLE TO AMBULATE TO BED IND. VSS; O2 SAT >94% ON 4L O2 VIA NC, CONT BIOX IN USE, HR TACHY @ 103. A&O x4, PT DENIES NAUSEA AT THIS TIME, MATHEUS MIN SIPS OF WATER. BT HYPOACTIVE. LAP SITE x4 c EXOFIN C/D/I. PT DENIES PAIN. FAMILY AT BEDSIDE. CALL LIGHT IN REACH, BED IN LOWEST POSITION, NO NEEDS STATED.
[2024-10-29] MEDS ORDERED: Lactobacil 2-S.Thermo-Bifido 1 1 Cap PO SCH (21:00)
[2024-10-30 00:03] VITALS: BP 94/61
--- NOTE | 2024-10-30 04:49 | NUR ---
SHIFT SUMMARY POD 1 LAP LINDA. NO ACUTE CHANGES OVERNGIHT. VSS. TOLERATING REG DIET, PT DENIES NAUSEA. LAP SITE x4 c EXOFIN C/D/I. VOIDING. AMBULTES IND. PT REPORTS PAIN TOLERABLE, MEDICATED PER EMAR. ANTICIPATED D/C LATER TODAY. CALL LIGHT IN REACH, WILL REPORT TO DAY RN.
[2024-10-30 04:59] LABS: BASOPHILS ABSOLUTE AUTO 0.02 K/mm3 (0.00-0.23); BASOPHILS PERCENT AUTO 0 % (0-2); EOSINOPHILS PERCENT AUTO 0 % (0-6); Hematocrit 39.1 % (33.0-51.0); Hemoglobin 13.4 g/dL (11.5-16.0); IMMATURE GRAN ABSOLUTE AUTO 0.04 K/mm3 (0.00-0.10); IMMATURE GRAN PERCENT AUTO 0 % (0-1); LYMPHOCYTES ABSOLUTE AUTO 1.38 K/mm3 (0.84-5.20); LYMPHOCYTES PERCENT AUTO 11 % (21-46); MONOCYTES ABSOLUTE AUTO 0.98 K/mm3 (0.16-1.47); MONOCYTES PERCENT AUTO 8 % (4-13); Mean Corpuscular HGB 32.4 pg (26.0-34.0); Mean Corpuscular HGB Conc 34.3 g/dL (31.5-36.5); Mean Corpuscular Volume 95 fL (80-100); Mean Platelet Volume 8.5 fL (9.1-12.4); NEUTROPHILS PERCENT AUTO 82 % (41-73); Platelet Count 222 K/mm3 (150-400); RDW Coefficient Variation 12.6 % (11.7-14.2); RDW Standard Deviation 43.5 fL (35.1-46.3); Red Blood Cell Count 4.13 M/mm3 (3.80-5.20); White Blood Cell Count 13.12 K/mm3 (4.00-11.30)
[2024-10-30 05:06] VITALS: BP 102/60
[2024-10-30 05:40] LABS: Albumin, Blood 2.8 g/dL (3.4-5.0); Albumin/Globulin Ratio 0.8 (0.8-1.8); Bilirubin, Total 0.6 mg/dL (0.1-1.0); Bun/Creatinine Ratio 15.9 (12.0-20.0); Calcium, Blood 8.8 mg/dL (8.5-10.1); Creatinine, Blood 0.82 mg/dL (0.40-1.00); Globulin, Blood 3.4 g/dL (2.2-4.0); Potassium, Blood 4.1 mmol/L (3.5-5.5); Total Protein, Blood 6.2 g/dL (6.4-8.2)
[2024-10-30 07:24] VITALS: BP 96/51
[2024-10-30 11:52] VITALS: BP 96/54
[2024-10-30] MEDS ORDERED: OXYC5 PO (13:00)
--- NOTE | 2024-10-30 13:17 | NUR ---
DISCHARGE EATING, DRINKING, VOIDING WELL. DENIES PASSING GAS BUT ENCOURAGED TO AMBULATE. PAIN REASONABLY CONTROLLED. INC SITES WNL. NO BRUISING, DRNG, OR REDNESS. HAPPY TO DC HOME. ESCORTED OUT VIA WC. Rx TO [facility] PER PT REQUEST.
== END 2024-10-30 13:17 | disposition home or self-care (01) | DRG 419 ==
LOC: ER 08:29 → SURS 08:30 → ER 12:23 → SURS 12:23
PROVIDERS: Family Medicine; Physician Assistant; Surgery; ADMIT Family Medicine
PROC: BF12YZZ Fluoroscopy of Gallbladder using Other Contrast (ICD-10-PCS; 2024-10-29)
PROC: 8E0W4CZ Robotic Assisted Procedure of Trunk Region, Percutaneous Endoscopic Approach (ICD-10-PCS; 2024-10-29)
PROC: 0FT44ZZ Resection of Gallbladder, Percutaneous Endoscopic Approach (ICD-10-PCS; principal; 2024-10-29 15:15)
DX: K81.0 Acute cholecystitis (principal); G40.909 Epilepsy, unspecified, not intractable, without status epilepticus; F41.8 Other specified anxiety disorders; G43.909 Migraine, unspecified, not intractable, without status migrainosus; J45.20 Mild intermittent asthma, uncomplicated; Z90.710 Acquired absence of both cervix and uterus; Z88.1 Allergy status to other antibiotic agents; Z79.899 Other long term (current) drug therapy; Z85.43 Personal history of malignant neoplasm of ovary; Z87.891 Personal history of nicotine dependence
CPT/HCPCS: 36415; 74300; 76705; 78226; 80053; 81003; 83690; 83735; 84100; 84484; 85025; 88304; 93005; 93010; 94640; 94664; 94760; 94762; 96374; 96375; 96376; 99285-25; A9270; A9537; C1894; J0696; J1100; J1171; J1885; J2250; J2270; J2371; J2405; J2704; J2765; J3010; J7030; J7120

== ENCOUNTER → 2025-06-13 | Outpatient (CLI) | payer OTHER ==
[~2025-06-13] MED LIST changes: +FLUTICASONE-SA1 EAC1 INH; +OXYC5 PO
== END ==
LOC: LAB SHORT 09:39 → LAB 09:39
DX: N39.0 Urinary tract infection, site not specified (principal); T83.511A Infection and inflammatory reaction due to indwelling urethral catheter, initial encounter
CPT/HCPCS: 87077; 87086; 87147; 87186

== ENCOUNTER → 2025-06-22 | Outpatient (CLI) | payer OTHER | LOC: LAB 18:05 → LAB SHORT 18:05 | DX: N39.0 Urinary tract infection, site not specified (principal) | CPT/HCPCS: 87077; 87086; 87186 ==

== ENCOUNTER → 2025-08-21 | Outpatient (CLI) | payer OTHER | LOC: LAB SHORT 15:13 → LAB 15:13 | DX: N39.0 Urinary tract infection, site not specified (principal) | CPT/HCPCS: 87086 ==